=== PATIENT | male | born 1965 | race Two or more races ===

== ENCOUNTER 2016-11-22 08:57 | Day surgery (SDC) | payer BC ==
--- NOTE | ~2016-11-22 | EGD ---
EGD REPORT [facility] [address] [address] NAME: CLIFTON PHAM : [birth year] STATUS : REG [facility]#: [id number] AGE: 51 ADM/REG DATE : 11/22/16 MR#: [id number] REPORT SERV DATE: 11/22/16 DICTATED BY: BOBBY BURNS DATE: 11/22/16 REPORT STATUS : Draft TRANSCRIBED BY: [facility] DATE: 11/22/16 [facility] Center Patient Name: Clifton Pham Date of : 1965 Attending MD: RONDA BURNS MD Procedure Date No Time: 11/22/2016 Procedure: Colonoscopy Indications: Screening for colorectal malignant neoplasm, This is the patient's first colonoscopy Referring MD: ERASMO CASTAÑEDA MD Medicines: See the Anesthesia note for documentation of the administered medications Complications: No immediate complications. Estimated blood loss: None. Procedure: Pre-Anesthesia Assessment: - ASA Grade Assessment: II - A patient with mild systemic disease. - Prior to the procedure, a History and Physical was performed, and patient medications and allergies were reviewed. The patient's tolerance of previous anesthesia was also reviewed. The risks and benefits of the procedure and the sedation options and risks were discussed with the patient. All questions were answered, and informed consent was obtained. Prior Anticoagulants: The patient has taken no previous anticoagulant or antiplatelet agents. After reviewing the risks and benefits, the patient was deemed in satisfactory condition to undergo the procedure. After I obtained informed consent, the scope was passed under direct vision. Throughout the procedure, the patient's blood pressure, pulse, and oxygen saturations were monitored continuously. The PCF [id number] was introduced through the anus and advanced to the terminal ileum. The ileocecal valve, appendiceal orifice, terminal ileum and rectum were photographed. The entire colon was examined. The colonoscopy was performed without difficulty. The patient tolerated the procedure well. The quality of the bowel preparation was adequate. Findings: The perianal and digital rectal examinations were normal. The terminal ileum appeared normal. The colon (entire examined portion) appeared normal. Impression: - The examined portion of the ileum was normal. - The entire examined colon is normal. EGD REPORT [address] [address] NAME: CLIFTON PHAM : 65 STATUS : REG [facility]#: [id number] AGE: 51 ADM/REG DATE : 11/22/16 MR#: [id number] REPORT SERV DATE: 11/22/16 DICTATED BY: BOBBY BURNS DATE: 11/22/16 REPORT STATUS : Draft [facility]: [facility] DATE: 11/22/16 Recommendation: - Patient has a contact number available for emergencies. The signs and symptoms of potential delayed complications were discussed with the patient. Return to normal activities tomorrow. Written discharge instructions were provided to the patient. - Regular diet. - Discharge patient to home. - Continue present medications. - Repeat colonoscopy in 10 years for surveillance. Procedure Code(s): --- Professional --- 77926, Colonoscopy, flexible, proximal to splenic flexure; diagnostic, with or without collection of specimen(s) by brushing or washing, with or without colon decompression (separate procedure) Diagnosis Code(s): --- Professional --- Z12.11, Encounter for screening for malignant neoplasm of colon CPT copyright 2013 [employer]. All rights reserved. The codes documented in this report are preliminary and upon professor of art history review may be revised to meet current compliance requirements. RONDA BURNS MD 11/22/2016 11:39 AM This report has been signed electronically. Number of Addenda: 0 Note Initiated On: 11/22/2016 11:15 AM Scope Withdrawal Time 0 hours 10 minutes 14 seconds [address] [address]
[~2016-11-22 08:57] MED LIST: NORV5 PO
== END 2016-11-22 23:59 | disposition home or self-care (01) ==
LOC: DMU 08:57
PROVIDERS: Internal Medicine Gastroenterology
PROC: 0DJD8ZZ Inspection of Lower Intestinal Tract, Via Natural or Artificial Opening Endoscopic (ICD-10-PCS; principal; 2016-11-22 11:30)
DX: Z12.11 Encounter for screening for malignant neoplasm of colon (principal); I10 Essential (primary) hypertension; R74.0 Nonspecific elevation of levels of transaminase and lactic acid dehydrogenase [LDH]; K76.0 Fatty (change of) liver, not elsewhere classified; N28.1 Cyst of kidney, acquired; K86.89 Other specified diseases of pancreas; Z85.038 Personal history of other malignant neoplasm of large intestine; Z79.899 Other long term (current) drug therapy
CPT/HCPCS: 76705